=== PATIENT | male | born 1985 | race Caucasian/White ===

== ENCOUNTER 2017-01-14 18:07 | Emergency (ER) | payer SELFPAY ==
[~2017-01-14] VITALS: Ht 180.3 cm; Wt 79.4 kg
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
--- NOTE | 2017-01-14 18:07 | NUR ---
Patient JOSELITO FINNEGAN.
--- NOTE | 2017-01-14 18:08 | NUR ---
Dr. Kyle evaluating patient.
[2017-01-14 18:10] VITALS: BP 132/69
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
[2017-01-14 18:59] VITALS: BP 132/69
== END 2017-01-14 18:55 ==
LOC: MED 18:07
DX: S50.12XA Contusion of left forearm, initial encounter (principal); W22.8XXA Striking against or struck by other objects, initial encounter; Y93.89 Activity, other specified; Y92.89 Other specified places as the place of occurrence of the external cause; Y99.8 Other external cause status

== ENCOUNTER 2018-08-30 01:40 | Emergency (ER) | payer SELFPAY ==
[~2018-08-30] VITALS: Ht 182.9 cm; Wt 81.6 kg
[2018-08-30 01:40] VITALS: BP 132/73
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
[2018-08-30 02:21] VITALS: BP 127/62
== END 2018-08-30 02:21 ==
LOC: MED 01:40
DX: Z02.89 Encounter for other administrative examinations (principal); F15.90 Other stimulant use, unspecified, uncomplicated
CPT/HCPCS: 99283